=== PATIENT | female | born 1990 | race Caucasian/White ===

== ENCOUNTER → 2020-08-20 | Outpatient (CLI) | payer BC ==
--- NOTE | 2020-08-20 09:03 | US ---
EXAMINATION TYPE: US gallbladder DATE OF EXAM: 08/20/2020 COMPARISON: NONE CLINICAL HISTORY: R10.13 Epigastric pain. upset stomach for years, worse this past month EXAM MEASUREMENTS: Liver Length: 13.4 cm Gallbladder Wall: 0.2 cm CBD: 0.4 cm Right Kidney: 9.2 x 4.4 x 4.9 cm Pancreas: wnl Liver: wnl Gallbladder: wnl Evidence for sonographic Maciel's sign: no CBD: wnl Right Kidney: wnl IMPRESSION: No gallstones or ultrasonic evidence for acute cholecystitis.
== END ==
LOC: RADUSWWP 08:05
PROVIDERS: ATTEND Internal Medicine
DX: R10.13 Epigastric pain (principal)
CPT/HCPCS: 76705

== ENCOUNTER → 2021-04-28 | Outpatient (CLI) | payer MEDICAID, OTHER | END | disposition home or self-care (01) | LOC: LABWHC1 10:40 | PROVIDERS: ATTEND Emergency Medicine | DX: Z20.822 Contact with and (suspected) exposure to COVID-19 (principal) | CPT/HCPCS: 87635 ==